=== PATIENT | female | born 1930 | race Caucasian/White ===

== ENCOUNTER 2017-04-02 18:48 | Emergency (ER) | payer MEDICARE, OTHER ==
[2017-04-02 18:56] VITALS: TEMP 98
--- NOTE | 2017-04-02 19:29 | ED ---
General Adult HPI - General Chief complaint: Neck Pain/Injury Stated complaint: Neck and leg pain Source: patient, family, RN notes reviewed Mode of arrival: wheelchair Limitations: no limitations - History of Present Illness Initial comments: Chief complaint and history of present illness is an 87-year-old female here with family. The patient has several complaints chronic neck pain for 6 years as well as left leg sciatic distribution pain for 3 weeks going from the right lower back to behind the right tib-fib area. And 6 hours ago she started having some discomfort on the left sciatic distribution to posterior left knee. She denies any injuries. She also complains of occasional twitching slightly worse today than before. The twitching. When she was engaged in the conversation. - Related Data Home Medications Medication Instructions Recorded Confirmed Omeprazole 20 mg PO QAM 07/19/14 04/02/17 Simvastatin 40 mg PO QAM 07/19/14 04/02/17 Hydrochlorothiazide 12.5 mg PO QAM 05/29/16 04/02/17 [Hydrochlorothiazide] Apixaban [Eliquis] 2.5 mg PO BID 04/02/17 04/02/17 Diltiazem HCl [Diltiazem 12Hr ER] 90 mg PO HS 04/02/17 04/02/17 Lisinopril [Zestril] 5 mg PO QAM 04/02/17 04/02/17 Previous Rx's Medication Instructions Recorded Ibuprofen [Motrin] 600 mg PO Q6HR PRN #12 tab 04/02/17 methylPREDNISolone Dose Pack 4 mg PO DIRECTED #21 package 04/02/17 [Medrol Dose Pack] Allergies Allergy/AdvReac Type Severity Reaction Status Date / Time Penicillins Allergy Intermediate Unknown Verified 04/02/17 20:00 Childhood Sulfa (Sulfonamide AdvReac Severe Abdominal Verified 04/02/17 20:00 Antibiotics) Pain Review of Systems ROS Statement: Those systems with pertinent positive or pertinent negative responses have been documented in the HPI. Review of systems no visual acuity changes today but she does state that she had double vision last week while watching golf on 2 occasions. Chronic neck pain she had a ailyn placed 6 years ago. No chest pain shortness of breath GI/ problems or complications. She has left and right side sciatic distribution discomfort. All systems reviewed past medical problems significant for A. fib on L [place], GERD, hyperlipidemia, hypertension,. The patient's surgeries are cholecystectomy, hysterectomy and cervical surgery with ailyn. Patient never smoked. Uses alcohol occasionally. ALLERGIES to penicillin and sulfa. Family history noncontributory ROS Other: All systems not noted in ROS Statement are negative. Past Medical History Past Medical History: Atrial Fibrillation, Chest Pain / Angina, GERD/Reflux, Hyperlipidemia, Hypertension Additional Past Medical History / Comment(s): PT ARRIVED IN ER VIA EMS AT 0545 THIS AM. SHE EXPERIENCED CHEST SHARP DISCOMFORT AT ABOUT 0200 THIS AM WHEN SHE AWAKENED. CHEST PAIN WAS WORSE WITH LYING BACK IN BED. SHE FELT SOME ASSOCIATED SOB AND MINIMAL NAUSEA WITH THIS PAIN. SHE ALSO HAS HX OF Aortic Insuffiency, HEART MURMUR, HIATAL HERNIA History of Any Multi-Drug Resistant Organisms: None Reported Past Surgical History: Cholecystectomy, Hysterectomy Additional Past Surgical History / Comment(s): CERVICAL SURGERY, R SHOULDER ROTATOR CUFF REPAIR, BILATERAL CATARACT REMOVAL, L FOOT GROWTH REMOVAL, SINUS SURGERY. Past Anesthesia/Blood Transfusion Reactions: No Reported Reaction Additional Past Anesthesia/Blood Transfusion Reaction / Comment(s): PT HAS NEVER RECIEVED BLOOD. Past Psychological History: No Psychological Hx Reported Smoking Status: Never smoker Past Alcohol Use History: Occasional Past Drug Use History: None Reported - Past Family History Father Family Medical History: Myocardial Infarction ([place]) Additional Family Medical History / Comment(s): FATHER OF [place] AT AGE 63 Mother Family Medical History: No Reported History Additional Family Medical History / Comment(s): MOTHER AT AGE 93 YRS. General Exam - General Exam Comments Initial Comments: General: The patient is awake and alert, complains of occasional twitching. Chronic neck pain, left and right sided sciatica. Vital signs temp 98.0 pulse 79 respiratory rate 16 pulse ox 99% room air blood pressure 151/77 Eye: Pupils are equal, round and reactive to light, extra-ocular movements are intact ; there is normal conjunctiva bilaterally. No signs of icterus. Evidence of by bilateral cataracts. Ears, nose, mouth and throat: There are moist mucous membranes . Neck: Chronic neck pain, evidence of previous surgery. No pain or problems or numbness to the arms. Cardiovascular: Holosystolic murmur over the entire precordium. This is not new per patient Respiratory: Lungs are clear to auscultation, respirations are non-labored, breath sounds are equal. No wheezes, stridor, rales, or rhonchi. Gastrointestinal: Soft, non-distended, non-tender abdomen without masses or organomegaly noted. There is no rebound or guarding present. No CVA tenderness. Bowel sounds are unremarkable. Back: There is no tenderness to palpation in the midline. There is no obvious deformity. No rashes noted. Complains of left and right sided sciatic distribution discomfort. Musculoskeletal: Normal ROM, no tenderness, There is no pedal edema. There is no calf tenderness or swelling. Sensation intact. Pulses equal bilaterally 2+. Neurological: CN II-XII intact, There are no obvious motor or sensory deficits. Coordination appears grossly intact. Speech is normal. No focal or lateralizing findings Skin: Skin is warm and dry and no rashes or lesions are noted. Limitations: no limitations Course Vital Signs 04/02/17 18:49 Temperature 98 F Pulse Rate 79 Respiratory 16 Rate Blood Pressure 151/77 O2 Sat by Pulse 99 Oximetry Medical Decision Making - Medical Decision Making CT of the brain was done and reviewed by radiologist his impression is no acute intracranial hemorrhage, mass effect, midline shift. The ventricles and sulci within normal limits in size. The globes are intact and the visualized sinuses are clear. Impression no acute process. As read by Dr. Rodney Del Angel X-rays of lumbosacral spine were done and reviewed by radiologist his findings are there are marked degenerative spondylosis changes at all levels. Without malalignment or fractures. Impression; no definite acute process. As read by Dr. Rodney Del Angel The patient will be placed on ibuprofen for pain and a Medrol Dosepak for relaxation of muscle spasms. She'll be advised to follow-up with family physician and on-call neurologist Dr. Bay Giatan. Disposition Clinical Impression: Sciatica of left side, Sciatica of right side, Muscle twitching Disposition: HOME SELF-CARE Condition: Fair Instructions: Cervical Strain (ED), Sciatica (ED), Lumbar Radiculopathy (ED) Additional Instructions: Apply heat alternating with ice packs T her back. Take medications as directed. Follow-up with your family physician as well as neurologist. Prescriptions: Ibuprofen [Motrin] 600 mg PO Q6HR PRN #12 tab PRN Reason: Pain, take with food methylPREDNISolone Dose Pack [Medrol Dose Pack] 4 mg PO DIRECTED #21 package Referrals: McPhilimy,José Miguel, DO [Primary Care Provider] - 1-2 days Time of Disposition: 20:31
--- NOTE | 2017-04-02 19:50 | XR ---
EXAMINATION TYPE: XR lumbosacral spine min 4V DATE OF EXAM: 04/02/2017 COMPARISON: NONE HISTORY: Pain TECHNIQUE: 5 views FINDINGS: There are marked degenerative spondylosis changes at all levels, without malalignment or fr acture. IMPRESSION: No definite acute process.
--- NOTE | 2017-04-02 20:20 | CT ---
EXAMINATION TYPE: CT brain wo con DATE OF EXAM: 04/02/2017 COMPARISON: NONE HISTORY: Occasional diplopia. CT DLP: 1012.70 mGycm Automated exposure control for dose reduction was used. FINDINGS: There is no acute intracranial hemorrhage, mass effect, or midline shift identified. The ventricles and sulci are within normal limits in size. The globes are intact and the visualized sinuses are celeste ar. IMPRESSION: NO ACUTE PROCESS.
[2017-04-02 20:24] VITALS: BP 157/78; PULSE 66; RESP 18
[2017-04-02] MEDS ORDERED: predniSONE 20 MG TAB PO STA (20:28)
[2017-04-02] MEDS ORDERED: IBUPROFEN 600 MG STARTER PACK 4 TAB BTL PO STA (20:28)
== END 2017-04-02 20:32 | disposition home or self-care (01) ==
LOC: EC 18:48
DX: M54.31 Sciatica, right side (principal); M54.32 Sciatica, left side; R25.3 Fasciculation; E78.5 Hyperlipidemia, unspecified; I10 Essential (primary) hypertension; I48.91 Unspecified atrial fibrillation; K21.9 Gastro-esophageal reflux disease without esophagitis; Z79.01 Long term (current) use of anticoagulants; Z79.899 Other long term (current) drug therapy; Z88.0 Allergy status to penicillin; Z88.2 Allergy status to sulfonamides
CPT/HCPCS: 72110; 70450; 99284; J7512

== ENCOUNTER → 2017-04-22 | Outpatient (CLI) | payer MEDICARE, OTHER ==
--- NOTE | 2017-04-22 15:06 | MR ---
EXAMINATION TYPE: MR brain wo/w con DATE OF EXAM: 04/22/2017 1:58 PM COMPARISON: NONE HISTORY: Dizziness/Off Balance/Weakness CONTRAST: Patient received 15 mL intravenous MultiHance gadolinium contrast. Multiplanar and multispin-echo imaging of the brain was performed . Pre and post contrast enhanced i mages are obtained. The ventricles, basal cisterns and sulci overlying the cerebral convexities are mildly enlarged. There is evidence of mild periventricular white matter ischemic demyelination. Remote deep white matter insults are also noted. No acute edema is seen on diffusion weighted imaging. There is no evidence for midline shift or mass effect. Acute intracranial hemorrhage or extra-axial collection is not evident. No enhancing lesions are seen. The paranasal are well-aerated. Small amount of fluid within the left-sided mastoid air cells sugges ting mild left-sided mastoiditis. IMPRESSION: Age-related atrophic and chronic small vessel ischemic change. No acute intracranial process at this time. No enhancing lesions are seen. Left-sided mastoiditis.
== END | disposition home or self-care (01) ==
LOC: RADMRIMAIN 13:08
PROVIDERS: ATTEND Physician Assistant Medical
DX: G31.1 Senile degeneration of brain, not elsewhere classified (principal); I67.82 Cerebral ischemia
CPT/HCPCS: 70553; A9577

== ENCOUNTER 2017-07-31 15:30 | Emergency (ER) | payer MEDICARE, OTHER ==
--- NOTE | 2017-07-31 16:11 | CT ---
EXAMINATION TYPE: CT facial bones wo con DATE OF EXAM: 07/31/2017 COMPARISON: NONE HISTORY: Fall injury 1 day ago. Hematoma to left eye. CT DLP: 622.3 mGycm CONTRAST: None The paranasal sinuses are examined in the axial plane at 2 mm thick sections. Reconstructed images i n the coronal plane were obtained. There is dental amalgam scatter artifact. Maxillary spine appears intact. Nasal bones appear intact. Orbits are unremarkable. The maxillary sinuses are clear. The ethmoid air cells are clear. The sphenoid sinuses are clear. The frontal sinuses are clear. The septum is evaluated. There is septal deviation to the left posteriorly. The ostiomeatal units are patent. There is soft tissue swelling over the left periorbital region and lateral left orbit. This extends i nto the left frontal region. Findings are compatible with contusion and ecchymosis. IMPRESSIONS: 1. Mild superficial soft tissue swelling left periorbital region left cheek and left frontal region. No underlying fracture is evident.
--- NOTE | 2017-07-31 16:14 | ED ---
General Adult HPI - General Chief complaint: Fall Stated complaint: fall/arm pain Time Seen by Provider: 07/31/17 15:42 Source: patient, family, RN notes reviewed Mode of arrival: ambulatory Limitations: no limitations - History of Present Illness Initial comments: 87 yo female presents to the ER with cc of trip and fall. She was outside yesterday burning leaves and she tripped over the hose. Patient states she fell to the ground hitting her left elbow as well as her face. She states she did no loose consciousness, no lightheadedness or dizziness, or chest pain due to the fall. She states she noticed some bruising around the right eye but she denies pain, changes in vision, pain with movement of the eye. SHe denies a headache, neck pain, nausea or vomiting. She states the only pain she has is her left elbow. She states any movement of elbow causes her increased pain. She has noticed some swelling. She states she can move shoulder and wrist without difficulty. She denies any bleeding from cite. She had a difficult time getting dressed this morning and continued to have pain so she thought she should be seen. Patient denies any recent fever, chills, shortness of breath, chest pain , back pain, abdominal pain, nausea vomiting, numbness or tingling, dysuria or hematuria, constipation or diarrhea, headaches or visual changes, or any other current symptoms. - Related Data Home Medications Medication Instructions Recorded Confirmed Omeprazole 20 mg PO QAM 07/19/14 04/02/17 Simvastatin 40 mg PO QAM 07/19/14 04/02/17 Hydrochlorothiazide 12.5 mg PO QAM 05/29/16 04/02/17 [Hydrochlorothiazide] Apixaban [Eliquis] 2.5 mg PO BID 04/02/17 04/02/17 Diltiazem HCl [Diltiazem 12Hr ER] 90 mg PO HS 04/02/17 04/02/17 Lisinopril [Zestril] 5 mg PO QAM 04/02/17 04/02/17 Previous Rx's Medication Instructions Recorded traMADol HCl [Ultram] 50 mg PO Q6H PRN #20 tab 07/31/17 Allergies Allergy/AdvReac Type Severity Reaction Status Date / Time Penicillins Allergy Intermediate Unknown Verified 07/31/17 15:40 Childhood Sulfa (Sulfonamide AdvReac Severe Abdominal Verified 07/31/17 15:40 Antibiotics) Pain Review of Systems ROS Statement: Those systems with pertinent positive or pertinent negative responses have been documented in the HPI. ROS Other: All systems not noted in ROS Statement are negative. Past Medical History Past Medical History: Atrial Fibrillation, Chest Pain / Angina, GERD/Reflux, Hyperlipidemia, Hypertension Additional Past Medical History / Comment(s): Aortic Insuffiency, HEART MURMUR, HIATAL HERNIA History of Any Multi-Drug Resistant Organisms: None Reported Past Surgical History: Back Surgery, Cholecystectomy, Hysterectomy, Orthopedic Surgery Additional Past Surgical History / Comment(s): CERVICAL SURGERY, R SHOULDER ROTATOR CUFF REPAIR, BILATERAL CATARACT REMOVAL, L FOOT GROWTH REMOVAL, SINUS SURGERY. Past Anesthesia/Blood Transfusion Reactions: No Reported Reaction Additional Past Anesthesia/Blood Transfusion Reaction / Comment(s): PT HAS NEVER RECIEVED BLOOD. Past Psychological History: No Psychological Hx Reported Smoking Status: Never smoker Past Alcohol Use History: Occasional Past Drug Use History: None Reported - Past Family History Father Family Medical History: Myocardial Infarction ([place]) Additional Family Medical History / Comment(s): FATHER OF [place] AT AGE 63 Mother Family Medical History: No Reported History Additional Family Medical History / Comment(s): MOTHER AT AGE 93 YRS. General Exam Limitations: no limitations General appearance: alert, in no apparent distress Head exam: Present: atraumatic, normocephalic, normal inspection Eye exam: Present: PERRL, EOMI, periorbital swelling (left eye), periorbital tenderness (lower orbital area), other (ecchymosis around right eye). Absent: scleral icterus, conjunctival injection ENT exam: Present: normal exam, mucous membranes moist Neck exam: Present: normal inspection. Absent: tenderness, meningismus, lymphadenopathy Respiratory exam: Present: normal lung sounds bilaterally. Absent: respiratory distress, wheezes, rales, rhonchi, stridor Cardiovascular Exam: Present: regular rate, normal rhythm, normal heart sounds. Absent: systolic murmur, diastolic murmur, rubs, gallop, clicks Extremities exam: Present: full ROM (of left shoulder and left wrist), tenderness (to palpation of elbow with swelling), normal capillary refill, joint swelling (left elbow). Absent: pedal edema Back exam: Present: normal inspection Neurological exam: Present: alert, oriented X3 Psychiatric exam: Present: normal affect, normal mood Skin exam: Present: warm, dry, intact Course Vital Signs 07/31/17 15:35 Temperature 98.4 F Pulse Rate 96 Respiratory 16 Rate Blood Pressure 168/74 O2 Sat by Pulse 99 Oximetry Procedures - Orthopedic Splinting/Casting Injury #1 Side: left Upper Extremity Injury Location: elbow Upper Extremity Immobilizer: sling/shoulder immobilizer, posterior splint (long arm) Medical Decision Making - Medical Decision Making 87 yo female presents to the ER with cc of left elbow pain, facial contusion after a fall. At this time patient does appear to have a left elbow fracture. She was placed in a splint and we discussed follow-up with orthopedics. This time had imaging was reviewed with the patient. We discussed return Follow-up and all questions. Patient stated that she understood and she is in agreement this plan. All questions have been answered. She'll be discharged. Disposition Clinical Impression: Fall, Contusion, eye, left, Minor head injury, Left elbow fracture Disposition: HOME SELF-CARE Condition: Stable Instructions: Fall Prevention for Older Adults (ED), Head Injury (ED), Elbow Fracture (ED) Additional Instructions: Please use medication as discussed. Please follow up with family doctor if symptoms have not improved over the next two days. Please return to the emergency room if your symptoms increase or worsen or for any other concerns. Rest the area. Ice the area 20 min on 20 min off 4x a day. Compress the area with either the ARIK bandage or wearing the splint. Elevate the area above the heart whenever possible. Prescriptions: traMADol HCl [Ultram] 50 mg PO Q6H PRN #20 tab PRN Reason: Pain Referrals: José Miguel Herring DO [Primary Care Provider] - 1-2 days Adam Pollock MD [STAFF PHYSICIAN] - 1-2 days Time of Disposition: 16:35
--- NOTE | 2017-07-31 16:16 | XR ---
Left elbow HISTORY: Trauma and pain 4 views of the left elbow, no comparisons Lucency present through the lateral humerus distally which is thought to extend into the joint. Soft tissue swelling is present. There are osteoarthritic changes present. Question chondrocalcinosis, dif ficult to exclude loose bodies. Bone mineralization is reduced. Alignment is maintained. Technique is somewhat limited. There is pathologic joint effusion. IMPRESSION: Distal humerus intra-articular fracture as described. Soft tissue swelling, joint effusio n, osteoarthritis, consider crystal deposition arthropathy.
--- NOTE | 2017-07-31 16:18 | CT ---
EXAMINATION TYPE: CT brain he flood DATE OF EXAM: 07/31/2017 COMPARISON: 04/02/2017 HISTORY: Fall injury 1 day ago. Hemtoma to left eye. CT DLP: 1240.6 mGycm, Automated exposure control for dose reduction was used. CONTRAST: None CT of the brain is performed utilizing 3 mm thick sections through the posterior fossa and 3 mm thick sections through the remaining calvarium. Study is performed within 24 hours of arrival to the hospital. No abnormal hyperdensity is present to suggest an acute intracranial hemorrhage. No mass lesion is evident. No acute infarcts are evident. Periventricular white matter hypodensity is present, compatible with mild periventricular white matter ischemic type changes. Ventricles and sulci are prominent for the patient age. Paranasal sinuses and mastoid air cells within the [id number] are clear. There is superficial soft tissue swelling over the left periorbital region compatible with contusion. No underlying fracture is evident. IMPRESSIONS: 1. Atrophy with chronic appearing white matter ischemic changes. 2. Superficial soft tissue swelling over the left periorbital region. CT cervical spine. COMPARISON: None CT of the cervical spine is performed in the axial plane at 2 mm thick sections. Reconstructed image s in the coronal, and sagittal plane are reviewed on the computer. No acute fractures are evident. Postsurgical changes present with laminectomy between C3 and C6. Beam hardening artifact from metallic pedicle screws and rods are present. There is a cervical kyphosis centered at C5-6 right fusion of C5-6 is present. Loss of disc height is present C6-7. Vertebral body heights are preserved. No spinal canal stenosis is evident. Foraminal narrowing is present C3-C4, C4-5 on the left due to uncovertebral joint hypertrophy and fa cet hypertrophy. Uncovertebral joint hypertrophy is mild foraminal narrowing present C5-6 bilaterally . IMPRESSIONS: 1. Postsurgical changes cervical spine with cervical kyphosis centered at C5-6. 2. Cervical fusion C5-6. 3. Degenerative disc changes C4-5 C7-T1. 4. Mild foraminal narrowing discussed above.
[2017-07-31 16:51] VITALS: BP 152/68; PULSE 83; RESP 17; TEMP 98.5
== END 2017-07-31 16:50 | disposition home or self-care (01) ==
LOC: EC 15:30
DX: S42.402A Unspecified fracture of lower end of left humerus, initial encounter for closed fracture (principal); S00.12XA Contusion of left eyelid and periocular area, initial encounter; I48.91 Unspecified atrial fibrillation; K21.9 Gastro-esophageal reflux disease without esophagitis; E78.5 Hyperlipidemia, unspecified; I10 Essential (primary) hypertension; Z79.01 Long term (current) use of anticoagulants; Z79.899 Other long term (current) drug therapy; Z88.0 Allergy status to penicillin; Z88.2 Allergy status to sulfonamides; W01.10XA Fall on same level from slipping, tripping and stumbling with subsequent striking against unspecified object, initial encounter; Y92.480 Sidewalk as the place of occurrence of the external cause; Y93.89 Activity, other specified
CPT/HCPCS: 29105; 70450; 70486; 72125; 99284

== ENCOUNTER → 2017-09-16 | Outpatient (CLI) | payer MEDICARE, OTHER ==
--- NOTE | 2017-09-17 08:58 | XR ---
Left hand HISTORY: Pain, strain 3 views of the left hand. Correlation to left forearm 09/16/2017 Bone mineralization is reduced. Arthropathy is extensive, there is soft tissue swelling present. Ques tion subluxations the distal interphalangeal joints, carpophalangeal joints of the second and third d igits. Possible chondrocalcinosis along the triangular fibrocartilage, soft tissues at the level of t he third metacarpophalangeal joint. Hooked osteophyte noted at the distal third metacarpal. 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 No acut e fracture is evident, decreased bone mineralization could limit sensitivity. Correlate for subluxati ons as described greatest at the third metacarpophalangeal joint. Follow-up as indicated.
--- NOTE | 2017-09-17 08:59 | XR ---
Left forearm HISTORY: Pain, strain 3 views of the left forearm views are nonstandard. Bone mineralization is reduced. No evident fracture or dislocation. Arthropath y noted within the hand and elbow. Possible soft tissue swelling. IMPRESSION: No acute fracture or dislocation is evident. Follow-up as indicated.
== END | disposition home or self-care (01) ==
LOC: RADXRYALE 15:47
PROVIDERS: ATTEND Physician Assistant Medical
DX: M12.842 Other specific arthropathies, not elsewhere classified, left hand (principal); M12.822 Other specific arthropathies, not elsewhere classified, left elbow

== ENCOUNTER → 2017-10-17 | Outpatient (CLI) | payer MEDICARE, OTHER ==
--- NOTE | 2017-10-18 09:26 | XR ---
EXAMINATION TYPE: XR shoulder complete LT DATE OF EXAM: 10/17/2017 COMPARISON: NONE HISTORY: Pain TECHNIQUE: Three views are submitted. FINDINGS: The osseous structures are intact. There is no acute fracture or dislocation. Diffuse osteopenia not ed. There is mild arthropathy of the AC joint. There is narrowing of the glenohumeral joint. Scleroti c changes involving the humeral head. IMPRESSION: 1. Severe AC joint arthropathy likely accounting for the sclerotic changes involving the humerus is c omplete loss of joint space and likely loss of cartilage. Lucency mixed with sclerosis noted involvin g the humeral head which can occasionally be seen with an osseous lesion. However, given the severe a rthropathy is most likely post arthritic. Recommend MRI.
== END | disposition home or self-care (01) ==
LOC: RADXRYALE 16:03
PROVIDERS: ATTEND Physician Assistant Medical
DX: M12.812 Other specific arthropathies, not elsewhere classified, left shoulder (principal); M25.812 Other specified joint disorders, left shoulder

== ENCOUNTER → 2018-03-13 | Outpatient (CLI) | payer MEDICARE, OTHER ==
--- NOTE | 2018-03-13 12:22 | CT ---
EXAMINATION TYPE: CT brain wo con DATE OF EXAM: 03/13/2018 COMPARISON: 08/02/2017 HISTORY: Fall with frontal injury [address] DLP: 782.4 mGycm Automated exposure control for dose reduction was used. TECHNIQUE: CT scan of the head is performed without contrast. FINDINGS: There is no acute intracranial hemorrhage or midline shift identified. There is diffuse v entricular and sulcal prominence consistent with diffuse age-related cerebral atrophy. No suspicious extra-axial fluid collection. Atherosclerosis of the intracranial vasculature is seen. There is low- attenuation in the periventricular white matter consistent with chronic small vessel ischemic change. The globes are intact and the visualized sinuses are clear. Again there is a stable calcified men ingioma or osteoma along the right frontal convexity similar to the prior of 08/02/2017. Minimal left paracentral scalp soft tissue swelling is noted without focal hematoma. IMPRESSION: 1. No acute intracranial process. Chronic changes as noted on the prior exam of 08/02/2017, overall u nchanged in the interim. 2. Resolution the previously seen left supraorbital frontal soft tissue hematoma with a small amount of left frontal soft tissue swelling noted.
== END | disposition home or self-care (01) ==
LOC: RADCTMAIN 11:54
PROVIDERS: ATTEND Physical Medicine & Rehabilitation
DX: R90.89 Other abnormal findings on diagnostic imaging of central nervous system (principal); M79.89 Other specified soft tissue disorders; R51 Headache
CPT/HCPCS: 70450

== ENCOUNTER → 2018-09-11 | Outpatient (CLI) | payer MEDICARE, OTHER ==
--- NOTE | 2018-09-11 15:49 | XR ---
EXAMINATION TYPE: XR wrist complete LT DATE OF EXAM: 09/11/2018 COMPARISON: NONE HISTORY: Pain TECHNIQUE: 3 views submitted. FINDINGS: The osseous structures are intact. There is diffuse osteopenia. There is marked narrowing of the firs t metacarpal trapezial joint and trapezial scaphoid joint. Findings compatible with osteoarthritis. A rthropathy of all MCP joints also noted. IMPRESSION: 1. No definite acute fracture or dislocation if symptoms persist, follow-up study in 7 to 10 days wo uld be suggested. 2. Severe osteopenia with diffuse arthropathy most typical of osteoarthritis. Deformity of the scapho id likely post arthritic. Correlate with MRI as clinically warranted.
== END ==
LOC: RADXRYALE 15:27
PROVIDERS: ATTEND Physician Assistant Medical
DX: M19.032 Primary osteoarthritis, left wrist (principal)

== ENCOUNTER → 2019-01-12 | Outpatient (CLI) | payer MEDICARE, OTHER ==
--- NOTE | 2019-01-12 11:56 | XR ---
EXAMINATION TYPE: XR cervical spine limited DATE OF EXAM: 01/12/2019 COMPARISON: NONE HISTORY: Pain TECHNIQUE: 2 views are submitted. FINDINGS: There is a kyphosis of the cervical spine. Postsurgical changes are noted and there is 2 mm anterolisthesis of C3 on C4. Prevertebral soft tissue structures grossly within normal limits. Partial fusion of the C5-C6 vertebral segments anteriorly. This is similar to the prior CT scan. Steffany re degenerative disc disease C6-C7. Suspect foraminal encroachment C5-6 and C6-C7. IMPRESSION: 1. Postsurgical changes with a 2 mm anterolisthesis C3 on C4. Persistent kyphosis noted. Correlate cl inically.
--- NOTE | 2019-01-12 11:58 | XR ---
EXAMINATION TYPE: XR thoracic spine 2V DATE OF EXAM: 01/12/2019 COMPARISON: NONE HISTORY: Pain Alignment is anatomic. There is no compression deformities. There is multilevel degenerative disc di sease and hypertrophic changes with advanced changes seen involving the lower thoracic spine and thor acolumbar junction. Vacuum disc seen in the upper lumbar spine. There is prominence of the right opal hilum which could been the basis of an aortic aneurysm. IMPRESSION: 1. Multilevel severe degenerative disc disease. 2. Prominence the right hilum could reflect an aortic aneurysm or adenopathy recommend CT chest. A [place] level critical message alert has been initiated for José Miguel Herring DO via the [employer] Critical Results System on 01/12/2019 11:55 AM. This message alert has been sent to José Miguel morejon DO via the preferences provided by the clinician for the receipt of Radiology Critical Findings. Message ID [id number].
== END | disposition home or self-care (01) ==
LOC: RADXRYALE 11:13
PROVIDERS: ATTEND Family Medicine
DX: M51.35 Other intervertebral disc degeneration, thoracolumbar region (principal); M43.12 Spondylolisthesis, cervical region; M40.292 Other kyphosis, cervical region
CPT/HCPCS: 72040; 72070

== ENCOUNTER → 2019-01-19 | Outpatient (CLI) | payer MEDICARE, OTHER ==
--- NOTE | 2019-01-19 13:45 | CT ---
EXAMINATION TYPE: CT chest wo con DATE OF EXAM: 01/19/2019 COMPARISON: Comparison chest x-ray from outside institution was not made available for correlation HISTORY: Abnormal finding in chest CT DLP: 351.2 mGycm. Automated Exposure Control for Dose Reduction was Utilized. TECHNIQUE: CT scan of the thorax is performed without IV contrast. FINDINGS: Lack of contrast could compromise sensitivity. LUNGS: The lungs are grossly clear, there is no concerning parenchymal mass or nodule identified. T here is no pleural effusion or pneumothorax seen. The tracheobronchial tree is patent. MEDIASTINUM: Lack of IV contrast is noted to limit evaluation for mediastinal and especially hilar ad enopathy. There are no definitive greater than 1 cm hilar or mediastinal lymph nodes. No cardiomega ly or pericardial effusion is seen. Calcification present at the root of the aorta and within the tra nsverse and descending aorta. There are small hiatal hernia. OTHER: Postop change noted in the right shoulder and lower cervical spine. Questionable gastric wall thickening. Low dense foci associated with the right kidney. IMPRESSION: Noncontrast exam. Hiatal hernia. Question gastric wall thickening. Dictated report can be performed to the outside chest x-ray and report the made available for correlation. Additional findi ngs above.
== END | disposition home or self-care (01) ==
LOC: RADCTMAIN 13:01
PROVIDERS: ATTEND Family Medicine
DX: K44.9 Diaphragmatic hernia without obstruction or gangrene (principal); I70.0 Atherosclerosis of aorta
CPT/HCPCS: 71250

== ENCOUNTER → 2019-01-24 | Outpatient (CLI) | payer MEDICARE, OTHER ==
--- NOTE | 2019-01-24 09:21 | MR ---
EXAMINATION TYPE: MR brain/cspine wo/w DATE OF EXAM ORDERED: 01/24/2019 9:04 AM HISTORY: M54.2 Cervicalgia / M54.12 / S09.90X Head injury. TECHNOLOGIST HISTORY AT TIME OF EXAM: Cervicalgia /Head injury/Pressure in skull into neck COMPARISON: Previous MRI of the brain dated 07/23/2017. TECHNIQUE: Multiplanar, multiecho imaging of the cervical spine was obtained without contrast on a 1 .5 tom magnet. FINDINGS: BRAIN: There are generalized changes of sulcal prominence and ventriculomegaly, compatible with atrop hic change. Midline structures are unremarkable. There is a normal cranial cervical junction. Echoplanar diffusion imaging fails to demonstrate any abnormal diffusion. There are normal vascular flow voids. The orbits are unremarkable. There is no evidence of a CP angle mass lesion. There is both confluent and punctate periventricular white matter change likely on the basis of chron ic ischemic changes of small vessel disease. This is not changed appreciably from the previous study. There is no acute focal lesion, mass effect or midline shift identified. I do not see evidence of in tracranial blood. Following intravenous administration of gadolinium, I do not see evidence of abnormal enhancement. CERVICAL SPINE: This examination is degraded by patient motion artifact. There is been a previous posterior fusion from C4 to C7. There is a reversal of the normal cervical doses which is replaced by kyphosis. Alignment is normal. Atlantoaxial relationships are normal. There is a normal craniocervical junction. Cord signal is normal. At C2-C3, no definite abnormality is seen. At C3-C4, there is a tiny central disc displacement mildly deforming the thecal sac without cord cont act. At C4-C5, there is left-sided intervertebral foraminal narrowing. There is disc space loss and hypert rophic spondylosis both anteriorly and posteriorly. Posterior spurring is deforming the thecal sac wi thout cord contact. There has been a previous posterior fusion the facets are obscured. At C5-C6, this level is fused. There is bilateral intervertebral foraminal narrowing. There is some s purring present posteriorly deforming the thecal sac without cord contact. The facets are obscured. At C6-C7, there is severe disc space loss. There is left-sided intervertebral foraminal narrowing. Th ere is no significant compressive discopathy. The facets are obscured. At C7-T1, the intervertebral foramina appear well maintained. There is no significant compressive dis copathy. There is mild degenerative changes in the facets. IMPRESSION: 1. NO ACUTE INTRACRANIAL ABNORMALITY. 2. AGE-RELATED DEGENERATIVE CHANGE WITHIN THE BRAIN. 3. EXTENSIVE POSTSURGICAL CHANGES IN THE CERVICAL SPINE. 4. MULTILEVEL INTERVERTEBRAL FORAMINAL NARROWING. 5. DIFFUSE DEGENERATIVE DISC DISEASE AND FACET ARTHROPATHY.
== END ==
LOC: RADMRIMAIN 07:33
PROVIDERS: ATTEND Physical Medicine & Rehabilitation
DX: M48.02 Spinal stenosis, cervical region (principal); M50.30 Other cervical disc degeneration, unspecified cervical region; M46.92 Unspecified inflammatory spondylopathy, cervical region; G31.1 Senile degeneration of brain, not elsewhere classified; Z98.890 Other specified postprocedural states
CPT/HCPCS: 70553; 72156; A9585

== ENCOUNTER 2019-01-25 14:58 | Observation (INO) | payer MEDICARE, OTHER ==
--- NOTE | 2019-01-25 15:48 | ED ---
Back Pain HPI - General Chief Complaint: Back Pain/Injury Stated Complaint: CHEST PAIN Time Seen by Provider: 01/25/19 15:00 Source: patient, EMS, RN notes reviewed Limitations: physical limitation - History of Present Illness Initial Comments: This 88-year-old female history of neck and back pain who did have an MRI done yesterday who came in by EMS today due to a change in the quality of the pain and location. She states she has some retrosternal chest heaviness or pressure she did not consider pain. She also pain in her back and neck area. She does state that the neck pain was 8-9/10 severity is currently 0 the chest pressure went away this with her tonight for aspirin given by EMS personnel. No nausea vomiting sweats shortness breath or other symptoms. She also does states she's had some edema to her legs and feet recently which have been somewhat better. No other modifying factors at this time MD Complaint: other - Related Data Home Medications Medication Instructions Recorded Confirmed Omeprazole 20 mg PO QAM 07/19/14 01/25/19 Simvastatin 40 mg PO HS 07/19/14 01/25/19 Apixaban [Eliquis] 2.5 mg PO BID 04/02/17 01/25/19 Diltiazem HCl [Diltiazem 12Hr ER] 90 mg PO HS 04/02/17 01/25/19 Lisinopril [Zestril] 5 mg PO QAM 04/02/17 01/25/19 Multivitamins, Thera [Multivitamin 1 tab PO DAILY 01/25/19 01/25/19 (formulary)] Allergies Allergy/AdvReac Type Severity Reaction Status Date / Time Penicillins Allergy Intermediate Rash/Hives Verified 01/25/19 16:33 Sulfa (Sulfonamide AdvReac Severe Abdominal Verified 01/25/19 16:33 Antibiotics) Pain Review of Systems ROS Statement: Those systems with pertinent positive or pertinent negative responses have been documented in the HPI. ROS Other: All systems not noted in ROS Statement are negative. Past Medical History Past Medical History: Atrial Fibrillation, Chest Pain / Angina, GERD/Reflux, Hyperlipidemia, Hypertension Additional Past Medical History / Comment(s): Aortic Insuffiency, HEART MURMUR, HIATAL HERNIA History of Any Multi-Drug Resistant Organisms: None Reported Past Surgical History: Back Surgery, Cholecystectomy, Hysterectomy, Orthopedic Surgery Additional Past Surgical History / Comment(s): CERVICAL SURGERY, R SHOULDER ROTATOR CUFF REPAIR, BILATERAL CATARACT REMOVAL, L FOOT GROWTH REMOVAL, SINUS SURGERY. Past Anesthesia/Blood Transfusion Reactions: No Reported Reaction Additional Past Anesthesia/Blood Transfusion Reaction / Comment(s): PT HAS NEVER RECIEVED BLOOD. Past Psychological History: No Psychological Hx Reported Smoking Status: Never smoker Past Alcohol Use History: Occasional Past Drug Use History: None Reported - Past Family History Father Family Medical History: Myocardial Infarction ([place]) Additional Family Medical History / Comment(s): FATHER OF [place] AT AGE 63 Mother Family Medical History: No Reported History Additional Family Medical History / Comment(s): MOTHER AT AGE 93 YRS. General Exam - General Exam Comments Initial Comments: This is a well-developed well-nourished awake alert oriented 3 female Limitations: physical limitation General appearance: alert, in no apparent distress Head exam: Present: atraumatic, normocephalic, normal inspection Eye exam: Present: normal appearance, PERRL, EOMI. Absent: scleral icterus, conjunctival injection, periorbital swelling ENT exam: Present: normal exam, mucous membranes moist Neck exam: Present: normal inspection, full ROM, other (No stridor JVD or bruits). Absent: tenderness, meningismus, lymphadenopathy Respiratory exam: Present: normal lung sounds bilaterally. Absent: respiratory distress, wheezes, rales, rhonchi, stridor Cardiovascular Exam: Present: regular rate, normal rhythm, normal heart sounds. Absent: systolic murmur, diastolic murmur, rubs, gallop, clicks GI/Abdominal exam: Present: soft, normal bowel sounds. Absent: distended, tenderness, guarding, rebound, rigid Extremities exam: Present: normal inspection, full ROM, normal capillary refill. Absent: tenderness, pedal edema, joint swelling, calf tenderness Back exam: Present: normal inspection Neurological exam: Present: alert, oriented X3, CN II-XII intact Psychiatric exam: Present: normal affect, normal mood Skin exam: Present: warm, dry, intact, normal color. Absent: rash Course Vital Signs 01/25/19 15:01 Temperature 98.9 F Pulse Rate 80 Respiratory 16 Rate Blood Pressure 119/104 O2 Sat by Pulse 98 Oximetry Medical Decision Making - Medical Decision Making Patient is pain-free this time did have an elevated d-dimer CT is pending. Patient be admitted for evaluation of chest pain case will be discussed with Dr. Argueta - Lab Data Result diagrams: 01/25/19 15:45 01/25/19 15:45 Lab Results 01/25/19 01/25/19 01/25/19 Range/Units 15:45 15:45 15:45 WBC 12.6 H (3.8-10.6) k/uL RBC 4.53 (3.80-5.40) m/uL Hgb 14.4 (11.4-16.0) gm/dL Hct 43.2 (34.0-46.0) % MCV 95.4 (80.0-100.0) fL MCH 31.9 (25.0-35.0) pg MCHC 33.4 (31.0-37.0) g/dL RDW 14.8 (11.5-15.5) % Plt Count 159 (150-450) k/uL Neutrophils % 72 % Lymphocytes % 21 % Monocytes % 5 % Eosinophils % 1 % Basophils % 0 % Neutrophils # 9.1 H (1.3-7.7) k/uL Lymphocytes # 2.6 (1.0-4.8) k/uL Monocytes # 0.6 (0-1.0) k/uL Eosinophils # 0.1 (0-0.7) k/uL Basophils # 0.0 (0-0.2) k/uL PT 10.7 (9.0-12.0) sec INR 1.0 (<1.2) APTT 23.6 (22.0-30.0) sec D-Dimer 1.62 H (<0.60) mg/L FEU Sodium 137 (137-145) mmol/L Potassium 4.4 (3.5-5.1) mmol/L Chloride 106 (98-107) mmol/L Carbon Dioxide 27 (22-30) mmol/L Anion Gap 4 mmol/L BUN 23 H (7-17) mg/dL Creatinine 0.82 (0.52-1.04) mg/dL Est GFR (CKD-EPI)AfAm 74 (>60 ml/min/1.73 sqM) Est GFR (CKD-EPI)NonAf 64 (>60 ml/min/1.73 sqM) Glucose 81 (74-99) mg/dL Calcium 9.2 (8.4-10.2) mg/dL Magnesium 2.2 (1.6-2.3) mg/dL Total Bilirubin 1.2 (0.2-1.3) mg/dL AST 25 (14-36) U/L ALT 31 (9-52) U/L Alkaline Phosphatase 86 (38-126) U/L Creatine Kinase 41 (30-135) U/L Total Protein 5.6 L (6.3-8.2) g/dL Albumin 3.7 (3.5-5.0) g/dL Amylase 78 (30-110) U/L Lipase 208 (23-300) U/L - EKG Data -: EKG Interpreted by Mt EKG shows normal: sinus rhythm (Normal sinus rhythm a 72. Interval 138 QRS duration 124 QT since QTC 400/440 left exodeviation a bundle-branch block pattern no acute ST-T wave changes) - Radiology Data Radiology results: report reviewed (Initial imaging unremarkable), image reviewed Disposition Clinical Impression: Unstable angina pectoris, Chest pain in adult Disposition: ADMITTED IP TO THIS HOSP Condition: Fair Referrals: José Miguel Herring DO [Primary Care Provider] - 1-2 days
--- NOTE | 2019-01-25 16:09 | XR ---
EXAMINATION TYPE: XR chest 2V DATE OF EXAM: 01/25/2019 COMPARISON: CT thorax 01/19/2019 HISTORY: Chest pain TECHNIQUE: Frontal and lateral views of the chest are obtained. FINDINGS: There is no focal air space opacity, pleural effusion, or pneumothorax seen. The cardiac silhouette size is within normal limits. The osseous structures are intact. Postsurgical changes of the spine and right shoulder are again evident. IMPRESSION: No acute cardiopulmonary process. No significant interval change.
[2019-01-25 16:17] LABS: Basophils % (A) 0 %; Eosinophils # (A) 0.1 k/uL (0-0.7); Eosinophils % (A) 1 %; HCT 43.2 % (34.0-46.0); HGB 14.4 gm/dL (11.4-16.0); Lymphocytes # (A) 2.6 k/uL (1.0-4.8); Lymphocytes % (A) 21 %; MCH 31.9 pg (25.0-35.0); MCHC 33.4 g/dL (31.0-37.0); MCV 95.4 fL (80.0-100.0); Mean Platelet Volume 6.9; Monocytes # (A) 0.6 k/uL (0-1.0); Monocytes % (A) 5 %; Neutrophils # (A) 9.1 k/uL (1.3-7.7); Neutrophils % (A) 72 %; Platelet Count 159 k/uL (150-450); RBC 4.53 m/uL (3.80-5.40); RDW 14.8 % (11.5-15.5); WBC 12.6 k/uL (3.8-10.6)
[2019-01-25 16:31] LABS: Albumin 3.7 g/dL (3.5-5.0); Calcium 9.2 mg/dL (8.4-10.2); Magnesium 2.2 mg/dL (1.6-2.3); Potassium 4.4 mmol/L (3.5-5.1); Total Bilirubin 1.2 mg/dL (0.2-1.3); Total Protein 5.6 g/dL (6.3-8.2)
[2019-01-25 16:33] LABS: Prothrombin Time 10.7 sec (9.0-12.0)
[2019-01-25 16:34] LABS: Partial Thromboplastin Time 23.6 sec (22.0-30.0)
[2019-01-25 16:35] LABS: D-Dimer 1.62 mg/L FEU (<0.60)
[2019-01-25] MEDS ORDERED: NITROGLYCERIN SL TABS 0.4 MG TAB SUBLINGUAL PRN (16:50)
--- NOTE | 2019-01-25 17:20 | CT ---
EXAMINATION TYPE: CT angio chest DATE OF EXAM: 01/25/2019 COMPARISON: CT thorax 01/19/2019 HISTORY: Chest pain. SOB CT DLP: 326.5 mGycm. Automated Exposure Control for Dose Reduction was Utilized. CONTRAST: CTA scan of the thorax is performed with IV Contrast, patient injected with 100 mL of Isovue 370, pul monary embolism protocol. MIP Images are created on CT scanner and reviewed. FINDINGS: LUNGS: The lungs are grossly clear, there is no concerning parenchymal mass or nodule identified. T here is no pleural effusion or pneumothorax seen. The tracheobronchial tree is patent. MEDIASTINUM: There is satisfactory enhancement of the pulmonary artery and its branches, there is no CT evidence for pulmonary embolism. There are no greater than 1 cm hilar or mediastinal lymph nodes. No cardiomegaly or pericardial effusion is seen. OTHER: Postsurgical changes of the right proximal humerus are evident. Limited evaluation of the uppe r abdomen is unremarkable. Multilevel degenerative type changes are seen throughout the visualized sp ine. No acute fracture. IMPRESSION: No pulmonary embolism.
[2019-01-25] MEDS ORDERED: hydrALAZINE HCL 25 MG TAB PO PRN (19:03)
[2019-01-25] MEDS: NITROGLYCERIN OINT 1 INCH/GM PACKET TOPICAL SCH (20:02)
[2019-01-25] MEDS: APIXABAN 2.5 MG TABLET PO SCH (20:22)
[2019-01-25] MEDS ORDERED: ATORVASTATIN 20 MG TAB PO SCH (21:00)
[2019-01-25] MEDS ORDERED: DILTIAZEM ORAL 30 MG TAB PO SCH (21:00)
[2019-01-26 00:08] LABS: Cholesterol 145 mg/dL (<200); HDL Cholesterol 80 mg/dL (40-60); LDL Cholesterol,Calculated 42 mg/dL (0-99); Triglycerides 114 mg/dL (<150)
[2019-01-26] MEDS: NITROGLYCERIN OINT 1 INCH/GM PACKET TOPICAL SCH ×3 (00:15→12:02)
[2019-01-26] MEDS ORDERED: PANTOPRAZOLE 40 MG TABLET PO SCH (07:30)
[2019-01-26] MEDS ORDERED: ASPIRIN 325 MG TAB PO SCH (09:00)
[2019-01-26] MEDS ORDERED: ISOSORBIDE MONONITRATE ER 30 MG TAB.ER.24H PO SCH (09:00)
[2019-01-26] MEDS ORDERED: LISINOPRIL 5 MG TAB PO SCH (09:00)
[2019-01-26] MEDS: APIXABAN 2.5 MG TABLET PO SCH (09:17)
--- NOTE | 2019-01-26 09:30 | CONS ---
CONSULTATION CHIEF COMPLAINT: Chest pain. Asha is an 88-year-old lady with history of paroxysmal atrial fibrillation and hypertension who presented to hospital complaining of chest pain. She complains of precordial chest discomfort that radiated to her back, mild intensity at rest, unassociated with diaphoresis, unrelated to exertion. There is no shortness of breath. The pain did not radiate down her arm. Since being admitted, she ruled out for myocardial infarction. EKG shows sinus rhythm with left bundle branch block. I reviewed her symptomatology and talked to her about her treatment options including cardiac catheterization and stress test. Understanding all the issues, she wishes to be treated with medical therapy. I am going to start her on Imdur 30 mg daily. Continue the aspirin, Eliquis, Lipitor, Cardizem CD and the hydralazine that she is currently on. Patient is allergic to PENICILLIN and SULFA. Medications at home included simvastatin 40 q. daily, Prilosec 20 q. daily, multivitamin, lisinopril 5 q. daily, Cardizem 90 daily, Eliquis 2.5 b.i.d. Family history is negative for premature coronary artery disease. Social history is negative for current smoking, EtOH abuse, or drug abuse. REVIEW OF SYSTEMS: HEENT: Unremarkable. CARDIAC: As described above. RESPIRATORY: As described above. GI: Negative. GENITOURINARY: Negative. ALLERGY/IMMUNOLOGY: Negative. SKIN: Negative. MUSCULOSKELETAL: Significant for arthritis. PSYCHOSOCIAL: Negative. ENDOCRINE: Negative. DERM: Negative. CONSTITUTIONAL: Negative. Rest of the system review is not relevant. On exam patient is comfortable at rest. Afebrile. Blood pressure is 167/81, respiratory rate is 18. Chest exam reveals diminished air entry at the bases. Heart exam reveals first and second heart sounds. No gallop. Has a systolic murmur at the apex. Abdomen is soft. Exam of extremities did not reveal any edema. Peripheral pulses are palpable. EKG shows sinus rhythm with left bundle branch block. CT angiogram was negative for pulmonary embolism. Labs show a hemoglobin of 14.4, platelet count is 159. Three sets of troponins are negative. Potassium is 4.4, creatinine is 0.8. D-dimer was elevated at 1.6. ASSESSMENT: 1. Precordial chest pain. 2. History of paroxysmal atrial fibrillation. PLAN: Patient is pain free this morning, free of symptoms. I talked about her treatment options. Patient opted for medical therapy. Will feed her, ambulate her, obtain a 2D echo, hopefully home either this afternoon or tomorrow depending upon how she does. She will follow up with her primary commercial energy rater. TAVIA / KYRIE: [id number] /
[2019-01-26] MEDS ORDERED: MULTIVITAMINS, THERA 1 EACH TAB PO SCH (12:00)
[2019-01-26 16:04] VITALS: BP 115/68; PULSE 81; RESP 14; TEMP 98.1
--- NOTE | 2019-01-26 17:31 | P.HPIM ---
History of Present Illness H&P Date: 01/26/19 Chief Complaint: Neck pain Ms. Snowden is a 88-year-old female with a past medical history of afibrillation, GERD, hyperlipidemia, hypertension, cervical surgery status post fusion coming in to the hospital with a chief complaint of neck pain. Patient states that she has chronic neck pain but yesterday she felt that the pain from her upper back was going a little bit towards her shoulders. Patient denies having any new tingling or numbness of her hands and fingers. Her pain is usually 5 out of 10 and yesterday it was 8 out of 10. The patient denies having any chest pain. Patient denies having any cough or difficulty in breathing. No recent travel. No complaints of lower extremity swelling. No abdominal pain nausea vomiting or diarrhea. No headaches or blurring of vision. Patient denies having any orthopnea or PND. She mentions that she follows with PCP and multiple other consultants, but was not able to figure out the reason for her chronic neck pain. In the emergency room, the patient had labs done showing an elevated d-dimer at 1.6 . So she had a CT of the chest that was negative for PE. Cardiology Dr. Mcghee has been consulted. All 13 review of systems are negative except for the ones mentioned above. Past Medical History Past Medical History: Atrial Fibrillation, GERD/Reflux, Hyperlipidemia, Hyp ertension Additional Past Medical History / Comment(s): Aortic Insuffiency, HEART MURMUR, HIATAL HERNIA History of Any Multi-Drug Resistant Organisms: None Reported Past Surgical History: Back Surgery, Cholecystectomy, Hysterectomy, Orthopedic Surgery Additional Past Surgical History / Comment(s): CERVICAL SURGERY, R SHOULDER ROTATOR CUFF REPAIR, BILATERAL CATARACT REMOVAL, L FOOT GROWTH REMOVAL, SINUS SURGERY. Past Anesthesia/Blood Transfusion Reactions: No Reported Reaction Additional Past Anesthesia/Blood Transfusion Reaction / Comment(s): PT HAS NEVER RECIEVED BLOOD. Past Psychological History: No Psychological Hx Reported Additional Psychological History / Comment(s): PT LIVES ALONE AT HOME AND IS VERY INDEPENDENT IN ALL ASPECTS. 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 Past Drug Use History: None Reported - Past Family History Father Family Medical History: Myocardial Infarction ([place]) Additional Family Medical History / Comment(s): FATHER OF [place] AT AGE 63 Mother Family Medical History: No Reported History Additional Family Medical History / Comment(s): MOTHER AT AGE 93 YRS. Medications and Allergies Home Medications Medication Instructions Recorded Confirmed Type Omeprazole 20 mg PO QAM 07/19/14 01/25/19 History Simvastatin 40 mg PO HS 07/19/14 01/25/19 History Apixaban [Eliquis] 2.5 mg PO BID 04/02/17 01/25/19 History Diltiazem HCl [Diltiazem 12Hr ER] 90 mg PO HS 04/02/17 01/25/19 History Lisinopril [Zestril] 5 mg PO QAM 04/02/17 01/25/19 History Multivitamins, Thera [Multivitamin 1 tab PO DAILY 01/25/19 01/25/19 History (formulary)] Allergies Allergy/AdvReac Type Severity Reaction Status Date / Time Penicillins Allergy Intermediate Rash/Hives Verified 01/25/19 16:33 Sulfa (Sulfonamide AdvReac Severe Abdominal Verified 01/25/19 16:33 Antibiotics) Pain Physical Exam Vitals: Vital Signs Temp Pulse Resp BP Pulse Ox 01/26/19 16:00 98.1 F 81 14 115/68 95 01/26/19 15:09 97 01/26/19 12:00 68 18 01/26/19 11:40 98.0 F 60 18 110/64 96 01/26/19 08:00 68 18 01/26/19 07:25 97.5 F L 68 18 167/81 98 01/26/19 04:00 97.5 F L 63 14 143/76 96 01/26/19 00:00 97.9 F 74 15 142/79 97 01/25/19 20:00 84 15 01/25/19 19:05 98.4 F 84 15 159/89 96 01/25/19 17:57 83 18 01/25/19 17:38 98.0 F 83 18 192/85 99 Intake and Output 01/26/19 01/26/19 01/26/19 06:59 14:59 22:59 Intake Total 200 Balance 200 Intake: Oral 200 Other: Voiding Method Toilet Toilet Toilet # Voids 2 - Exam GEN. APPEARANCE: alert, in no apparent distress HEENT - no pallor. No icterus. NECK EXAM-no JVD. No thyromegaly. RESPIRATORY EXAM: Mild crackles at the lower lung bases bilaterally. CARDIOVASCULAR EXAM: S1-S2 heard. Systolic murmur. GI/ABDOMINAL EXAM: soft, normal bowel sounds. Absent: distended, tenderness, guarding, rebound, rigid EXTREMITIES EXAM: No edema.. NEUROLOGICAL EXAM: alert, oriented X3, no focal deficits. PSYCHIATRIC EXAM: normal affect, normal mood SKIN EXAM: warm, dry, intact, normal color. Absent: rash Results CBC & Chem 7: 01/25/19 15:45 01/25/19 15:45 Labs: Abnormal Lab Results - Last 24 Hours (Table) 01/25/19 Range/Units 15:45 HDL Cholesterol 80 H (40-60) mg/dL Thrombosis Risk Factor Assmnt - Choose All That Apply Each Risk Factor Represents 3 Points: Age 75 years or older Thrombosis Risk Factor Assessment Total Risk Factor Score: 3 Thrombosis Risk Factor Assessment Level: Moderate Risk Assessment and Plan Assessment: ASSESSMENT Acute on chronic neck pain Paroxysmal atrial fibrillation Elevated d-dimer- CTA chest negative for PE Hypertension Hyperlipidemia GERD History of neck surgery status post fusion PLAN: As per the ED note and the nut sifter not patient reported precordial pain. But she completely denied having any symptoms in her chest. She consistently said that it was her neck pain that was radiating down to her shoulders. The patient had a CT of the chest that was negative for PE. Currently the patient is mentioning that her neck pain is better than her baseline. She thinks she is absolutely fine and is ready to go home. Discussed with her that the nut sifter ordered an echo, the report is still pending. Advised to follow with her nut sifter Dr. Chavez for the echo report. So the patient is being discharged in a stable condition with her daughter to home. No changes made in her medications. In case her symptoms, worsens or reoccur, she is advised to come back to the ER. Or else, she is advised to follow with her primary care physician in 2-3 days
--- NOTE | 2019-01-26 17:37 | P.DS ---
Providers Date of admission: 01/25/19 17:06 Expected date of discharge: 01/26/19 Attending physician: Zina Argueta Consults: 01/25/19 16:50 Consult Physician Urgent Consulting Provider: Mustapha Osborn Consult Reason/Comments: Chest pain, angina Do you want consulting provider notified?: Yes Primary care physician: [facility] Course: Ms. Snowden is a 88-year-old female with a past medical history of afibrillation, GERD, hyperlipidemia, hypertension, cervical surgery status post fusion coming in to the hospital with a chief complaint of neck pain. Patient s tates that she has chronic neck pain but yesterday she felt that the pain from her upper back was going a little bit towards her shoulders. Patient denies having any new tingling or numbness of her hands and fingers. Her pain is usually 5 out of 10 and yesterday it was 8 out of 10. The patient denies having any chest pain. Patient denies having any cough or difficulty in breathing. No recent travel. No complaints of lower extremity swelling. No abdominal pain nausea vomiting or diarrhea. No headaches or blurring of vision. Patient denies having any orthopnea or PND. She mentions that she follows with PCP and multiple other consultants, but was not able to figure out the reason for her chronic neck pain. In the emergency room, the patient had labs done showing an elevated d-dimer at 1.6 . So she had a CT of the chest that was negative for PE. Cardiology Dr. Mcghee has been consulted. As per Dr. Mcghee's note, if the patient is asymptomatic she could be discharged home. The patient is stating that she is feeling better than her baseline, so being discharged home in a stable condition. For details please look at H&P from today. DISCHARGE DIAGNOSIS Acute on chronic neck pain Paroxysmal atrial fibrillation Elevated d-dimer- CTA chest negative for PE Hypertension Hyperlipidemia GERD History of neck surgery status post fusion PLAN; patient is being discharged home with her daughter, Nette, in a stable condition. Patient Condition at Discharge: Fair Plan - Discharge Summary Discharge Rx Participant: No New Discharge Prescriptions: Continue Simvastatin 40 mg PO HS Omeprazole 20 mg PO QAM Apixaban [Eliquis] 2.5 mg PO BID Lisinopril [Zestril] 5 mg PO QAM Diltiazem HCl [Diltiazem 12Hr ER] 90 mg PO HS Multivitamins, Thera [Multivitamin (formulary)] 1 tab PO DAILY Discharge Medication List Omeprazole 20 mg PO QAM 07/19/14 [History] Simvastatin 40 mg PO HS 07/19/14 [History] Apixaban [Eliquis] 2.5 mg PO BID 04/02/17 [History] Diltiazem HCl [Diltiazem 12Hr ER] 90 mg PO HS 04/02/17 [History] Lisinopril [Zestril] 5 mg PO QAM 04/02/17 [History] Multivitamins, Thera [Multivitamin (formulary)] 1 tab PO DAILY 01/25/19 [History] Follow up Appointment(s)/Referral(s): José Miguel Herring DO [Primary Care Provider] - 1-2 days Discharge Disposition: HOME SELF-CARE
--- NOTE | 2019-01-27 07:50 | ECHOF ---
Referral Reason:cp MEASUREMENTS -------- HEIGHT: 152.4 cm WEIGHT: 63.5 kg BP: 167/81 RVIDd: 3.2 cm (< 3.3) IVSd: 1.2 cm (0.6 - 1.1) LVIDd: 2.7 cm (3.9 - 5.3) LVPWd: 1.4 cm (0.6 - 1.1) IVSs: 1.5 cm LVIDs: 1.7 cm LVPWs: 1.8 cm LAESV Index (A-L): 25.70 ml/m Ao Diam: 2.8 cm (2.0 - 3.7) AV Cusp: 1.1 cm (1.5 - 2.6) LA Diam: 3.5 cm (2.7 - 3.8) MV E Chip: 0.34 m/s MV DecT: 269 ms MV A Chip: 0.79 m/s MV E/A Ratio: 0.42 AV maxP.96 mmHg AV meanP.95 mmHg AR PHT: 448 ms RAP: 5.00 mmHg RVSP: 23.81 mmHg FINDINGS -------- Sinus rhythm. This was a technically adequate study. The left ventricular size is normal. There is mild concentric left ventricular hypertrophy. Overa ll left ventricular systolic function is normal with, an EF between 55 - 60 %. The right ventricle is normal in size. The left atrial size is normal. Normal LA size by volume 22+/-6 ml/m2. The right atrial size is normal. Interatrial and interventricular septum intact. There is [id number] aortic regurgitation. There is moderate aortic stenosis present. Mild mitral annular calcification present. Mild mitral regurgitation is present. Mild tricuspid regurgitation present. There is no evidence of pulmonary hypertension. The right v entricular systolic pressure, as measured by Doppler, is 23.81mmHg. The aortic root size is normal. IVC Not well visulized. There is no pericardial effusion. CONCLUSIONS -------- 1. Sinus rhythm. 2. This was a technically adequate study. 3. The left ventricular size is normal. 4. There is mild concentric left ventricular hypertrophy. 5. Overall left ventricular systolic function is normal with, an EF between 55 - 60 %. 6. The right ventricle is normal in size. 7. The left atrial size is normal. 8. Normal LA size by volume 22+/-6 ml/m2. 9. The right atrial size is normal. 10. Interatrial and interventricular septum intact. 11. There is [id number] aortic regurgitation. 12. There is moderate aortic stenosis present. 13. Mild mitral annular calcification present. 14. Mild mitral regurgitation is present. 15. Mild tricuspid regurgitation present. 16. There is no evidence of pulmonary hypertension. 17. The right ventricular systolic pressure, as measured by Doppler, is 23.81mmHg. 18. The aortic root size is normal. 19. IVC Not well visulized. 20. There is no pericardial effusion. MACHINE SPREADER: Jodi Palacio RDCS
== END 2019-01-26 17:50 | disposition home or self-care (01) ==
LOC: EC 14:58 → 1SOBS 17:06
PROVIDERS: ADMIT Internal Medicine; ATTEND Internal Medicine
DX: M54.2 Cervicalgia (principal); G89.29 Other chronic pain; R79.89 Other specified abnormal findings of blood chemistry; R07.2 Precordial pain; I44.7 Left bundle-branch block, unspecified; M54.9 Dorsalgia, unspecified; I35.1 Nonrheumatic aortic (valve) insufficiency; K21.9 Gastro-esophageal reflux disease without esophagitis; I48.0 Paroxysmal atrial fibrillation; I10 Essential (primary) hypertension; E78.5 Hyperlipidemia, unspecified; M19.90 Unspecified osteoarthritis, unspecified site; R60.0 Localized edema; K44.9 Diaphragmatic hernia without obstruction or gangrene; Z79.01 Long term (current) use of anticoagulants; Z79.899 Other long term (current) drug therapy; Z88.0 Allergy status to penicillin; Z88.2 Allergy status to sulfonamides; Z90.49 Acquired absence of other specified parts of digestive tract; Z98.1 Arthrodesis status; Z90.710 Acquired absence of both cervix and uterus; Z98.42 Cataract extraction status, left eye; Z98.41 Cataract extraction status, right eye; Z82.49 Family history of ischemic heart disease and other diseases of the circulatory system
CPT/HCPCS: 99285; 36415; 94760; 93005; 93306; 85379; 80061; 80053; 82150; 82550; 83690; 83735; 84484 ×2; 85025; 85610; 85730; 71046; 71275; G0378 ×2; Q9967

== ENCOUNTER 2019-01-27 12:37 | Emergency (ER) | payer MEDICARE, OTHER ==
--- NOTE | 2019-01-27 14:12 | ED ---
Neck Injury/Pain HPI - General Chief Complaint: Neck Pain/Injury Stated Complaint: pressure on neck Time Seen by Provider: 01/27/19 12:49 Source: RN notes reviewed, old records reviewed Mode of arrival: ambulatory Limitations: no limitations - History of Present Illness Initial Comments: This is an 80-year-old female the ER for evaluation. Patient resents today for evaluation regards to neck pain. Acute on chronic neck pain. Neck pain for years. Patient is recent hospital inpatient admission for chest pain to rule out any cardiac cause of neck pain as well as recent MRI which she believes was normal. Patient states the pain is just persistent, episodic shocking in nature. Does cause her to jump and have severe neck spasm but then resolves. No headache no shortness of breath no chest pain. No modifying factors for pain. Intermittent again with without significant findings MD Complaint: neck pain -: year(s) Place: home Radiation: right lateral, left lateral Severity: intermittent, similar to prior neck pain Severity scale (1-10): 7 Quality: sharp, stabbing Consistency: intermittent, now resolved Improves With: none Worsens With: none Associated Symptoms: none Treatments Prior to Arrival: none - Related Data Home Medications Medication Instructions Recorded Confirmed Omeprazole 20 mg PO QAM 07/19/14 01/27/19 Simvastatin 40 mg PO HS 07/19/14 01/27/19 Apixaban [Eliquis] 2.5 mg PO BID 04/02/17 01/27/19 Diltiazem HCl [Diltiazem 12Hr ER] 90 mg PO HS 04/02/17 01/27/19 Lisinopril [Zestril] 5 mg PO QAM 04/02/17 01/27/19 Multivitamins, Thera [Multivitamin 1 tab PO DAILY 01/25/19 01/27/19 (formulary)] Previous Rx's Medication Instructions Recorded predniSONE 50 mg PO DAILY #5 tab 01/27/19 Allergies Allergy/AdvReac Type Severity Reaction Status Date / Time Penicillins Allergy Intermediate Rash/Hives Verified 01/27/19 12:58 Sulfa (Sulfonamide AdvReac Severe Abdominal Verified 01/27/19 12:58 Antibiotics) Pain Review of Systems ROS Statement: Those systems with pertinent positive or pertinent negative responses have been documented in the HPI. ROS Other: All systems not noted in ROS Statement are negative. Past Medical History Past Medical History: Atrial Fibrillation, GERD/Reflux, Hyperlipidemia, Hypertension Additional Past Medical History / Comment(s): Aortic Insuffiency, HEART MURMUR, HIATAL HERNIA History of Any Multi-Drug Resistant Organisms: None Reported Past Surgical History: Back Surgery, Cholecystectomy, Hysterectomy, Orthopedic Surgery Additional Past Surgical History / Comment(s): CERVICAL SURGERY, R SHOULDER ROTATOR CUFF REPAIR, BILATERAL CATARACT REMOVAL, L FOOT GROWTH REMOVAL, SINUS SURGERY. Past Anesthesia/Blood Transfusion Reactions: No Reported Reaction Additional Past Anesthesia/Blood Transfusion Reaction / Comment(s): PT HAS NEVER RECIEVED BLOOD. Past Psychological History: No Psychological Hx Reported Smoking Status: Never smoker Past Alcohol Use History: Occasional Past Drug Use History: None Reported - Past Family History Father Family Medical History: Myocardial Infarction ([place]) Additional Family Medical History / Comment(s): FATHER OF [place] AT AGE 63 Mother Family Medical History: No Reported History Additional Family Medical History / Comment(s): MOTHER AT AGE 93 YRS. General Exam Limitations: no limitations General appearance: alert, in no apparent distress Head exam: Present: atraumatic, normocephalic, normal inspection Eye exam: Present: normal appearance, PERRL, EOMI. Absent: scleral icterus, conjunctival injection, periorbital swelling ENT exam: Present: normal exam, mucous membranes moist Neck exam: Present: normal inspection. Absent: tenderness, meningismus, lymphad enopathy Respiratory exam: Present: normal lung sounds bilaterally. Absent: respiratory distress, wheezes, rales, rhonchi, stridor Cardiovascular Exam: Present: regular rate, normal rhythm, normal heart sounds. Absent: systolic murmur, diastolic murmur, rubs, gallop, clicks GI/Abdominal exam: Present: soft, normal bowel sounds. Absent: distended, tenderness, guarding, rebound, rigid Extremities exam: Present: normal inspection, full ROM, normal capillary refill. Absent: tenderness, pedal edema, joint swelling, calf tenderness Back exam: Present: normal inspection Neurological exam: Present: alert, oriented X3, CN II-XII intact Psychiatric exam: Present: normal affect, normal mood Skin exam: Present: warm, dry, intact, normal color. Absent: rash Course Vital Signs 01/27/19 01/27/19 12:40 14:25 Temperature 98 F 98.0 F Pulse Rate 83 80 Respiratory 20 18 Rate Blood Pressure 165/98 155/78 O2 Sat by Pulse 99 99 Oximetry Medical Decision Making - Medical Decision Making 80 female the ER with acute on chronic neck pain and spasm. Patient will be placed on steroids which she states has worked for her in the past. Patient's prior imaging which is reviewed here in the ER, both MRI is negative as well as inpatient hospitalization for cardiac observation is negative. Patient is and remains without symptoms throughout ER stay Disposition Clinical Impression: Cervical radiculopathy, Strain of neck muscle Disposition: HOME SELF-CARE Condition: Good Instructions (If sedation given, give patient instructions): Cervical Strain (ED), Cervical Sprain (ED) Prescriptions: predniSONE 50 mg PO DAILY #5 tab Is patient prescribed a controlled substance at d/c from ED?: No Referrals: José Miguel Herring DO [Primary Care Provider] - 1-2 days
[2019-01-27 14:45] VITALS: BP 155/78; PULSE 80; RESP 18; TEMP 98
== END 2019-01-27 14:25 | disposition home or self-care (01) ==
LOC: EC 12:37
DX: S16.1XXA Strain of muscle, fascia and tendon at neck level, initial encounter (principal); M54.12 Radiculopathy, cervical region; I48.91 Unspecified atrial fibrillation; K21.9 Gastro-esophageal reflux disease without esophagitis; E78.5 Hyperlipidemia, unspecified; I10 Essential (primary) hypertension; Z98.890 Other specified postprocedural states; Z79.01 Long term (current) use of anticoagulants; Z79.899 Other long term (current) drug therapy; Z88.0 Allergy status to penicillin; Z88.2 Allergy status to sulfonamides
CPT/HCPCS: 99283